=== PATIENT | male | born 1945 | race Caucasian/White ===

== ENCOUNTER 2016-08-25 11:54 | Outpatient (CLI) | payer MEDICARE ==
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
== END 2016-08-25 11:55 | disposition home or self-care (01) ==
LOC: MADCT 11:54
PROVIDERS: ATTEND Family Medicine
DX: S02.40EA Zygomatic fracture, right side, initial encounter for closed fracture (principal); M25.541 Pain in joints of right hand; M54.2 Cervicalgia; V29.40XA Motorcycle driver injured in collision with unspecified motor vehicles in traffic accident, initial encounter; Y92.9 Unspecified place or not applicable
CPT/HCPCS: 70450; 70486; 71020; 72125

== ENCOUNTER 2016-08-26 07:29 | Outpatient (CLI) | payer MEDICARE ==
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
== END 2016-08-26 07:30 | disposition home or self-care (01) ==
LOC: MADCT 07:29
PROVIDERS: ATTEND Family Medicine
DX: I61.9 Nontraumatic intracerebral hemorrhage, unspecified (principal); D32.9 Benign neoplasm of meninges, unspecified
CPT/HCPCS: 70450

== ENCOUNTER 2018-03-08 09:15 | Outpatient (CLI) | payer MEDICARE ==
[2018-03-09 08:48] LABS: Anion Gap 15 mmol/L (10-20); BUN (Urea Nitrogen) 17 mg/dL (8.4-25.7); Carbon Dioxide 25 mmol/L (23-31); Chloride 106 mmol/L (98-107); Potassium 4.7 mmol/L (3.5-5.1); Sodium 141 mmol/L (136-145)
[2018-03-09 08:49] LABS: ALT (SGPT) 24 U/L (8-55); AST (SGOT) 18 U/L (5-34); Albumin 4.4 g/dL (3.4-4.8); Alkaline Phosphatase 138 U/L (40-150); Bilirubin, Direct 0.2 mg/dL (0.1-0.3); Bilirubin, Total 0.6 mg/dL (0.2-1.2); Calc. Creatinine Clearance 0 mL/min (70-130); Calcium 9.4 mg/dL (7.8-10.44); Cholesterol 151 mg/dL (< 200 Desired); Estimated GFR-MDRD 61; Glucose 105 mg/dL (83-110); Triglycerides 213 mg/dL (Less than 150)
[2018-03-09 08:50] LABS: Cardiac Risk 4.6 (Less than 4.5); HDL Cholesterol 33 mg/dL (>60 Neg Risk); LDL Cholesterol, Calculated 75 mg/dL
== END 2018-03-08 09:16 | disposition home or self-care (01) ==
LOC: MADLAB 09:15
PROVIDERS: ATTEND Family Medicine
DX: E78.00 Pure hypercholesterolemia, unspecified (principal)
CPT/HCPCS: 36415; 80048; 80061; 80076

== ENCOUNTER 2020-12-09 11:59 | Outpatient (CLI) | payer MEDICARE | END 2020-12-09 12:00 | disposition home or self-care (01) | LOC: MADCT 11:59 | PROVIDERS: ATTEND Nurse Practitioner Family | DX: R51.9 Headache, unspecified (principal); H53.9 Unspecified visual disturbance; Z87.828 Personal history of other (healed) physical injury and trauma | CPT/HCPCS: 70450 ==

== ENCOUNTER 2021-07-01 10:45 | Outpatient (CLI) | payer MEDICARE | END 2021-07-01 10:46 | disposition home or self-care (01) | LOC: MADRAD 10:45 | PROVIDERS: ATTEND Nurse Practitioner Family | DX: J44.9 Chronic obstructive pulmonary disease, unspecified (principal); R05.9 Cough, unspecified; R06.81 Apnea, not elsewhere classified | CPT/HCPCS: 71046 ==

== ENCOUNTER 2022-10-26 11:17 | Outpatient (CLI) | payer MEDICARE | END 2022-10-26 11:18 | disposition home or self-care (01) | LOC: MADRAD 11:17 | PROVIDERS: ATTEND Internal Medicine | DX: K21.9 Gastro-esophageal reflux disease without esophagitis (principal) | CPT/HCPCS: 71046 ==

== ENCOUNTER 2024-03-14 17:49 | Emergency (ER) | payer MEDICARE ==
[2024-03-14] MEDS ORDERED: Lidocaine Viscous Sol 2% 15 ml UD Cup ONE (18:21)
[2024-03-14] MEDS ORDERED: Lidocaine-Prilocaine 2.5% Cream 5 GM TUBE ONE (18:22)
[2024-03-14 19:03] LABS: Bilirubin Negative (Negative); Blood, Urine Trace (Negative); Glucose, Urine (Dipstick) Negative (Negative); Ketone, Urine Negative (Negative); Leukocyte Negative (Negative); Nitrite Negative (Negative); Protein, Urine (Dipstick) Trace mg/dL (Neg-Trace); Urobilinogen 0.2 mg/dL (Less than 2); pH, Urine 7.5 (5.0-9.0)
[2024-03-14 19:04] LABS: Clarity Hazy (Clear)
[2024-03-14 19:09] LABS: CAUTI Indications for Culture Pelvic or flank pain; WBC/HPF 0-3 HPF (0-3)
[2024-03-14 19:10] LABS: Bacteria/HPF Rare-Few HPF (None Seen); Squamous Epithelial 0-3 HPF (0-3)
[2024-03-14 19:11] LABS: Urine Culture Reflex No No
== END 2024-03-14 19:38 | disposition home or self-care (01) ==
LOC: MADERS 17:49
DX: R33.9 Retention of urine, unspecified (principal); I25.10 Atherosclerotic heart disease of native coronary artery without angina pectoris; I25.2 Old myocardial infarction; J44.9 Chronic obstructive pulmonary disease, unspecified; K21.9 Gastro-esophageal reflux disease without esophagitis; F17.210 Nicotine dependence, cigarettes, uncomplicated; E78.00 Pure hypercholesterolemia, unspecified; D02.20 Carcinoma in situ of unspecified bronchus and lung; D01.2 Carcinoma in situ of rectum; Z79.899 Other long term (current) drug therapy
CPT/HCPCS: 51702; 81001; 99283

== ENCOUNTER 2024-03-15 20:08 | Emergency (ER) | payer MEDICARE ==
[2024-03-15 22:50] LABS: Bilirubin Negative (Negative); Blood, Urine Large (Negative); Glucose, Urine (Dipstick) Negative (Negative); Ketone, Urine Negative (Negative); Leukocyte Trace (Negative); Nitrite Negative (Negative); Protein, Urine (Dipstick) 100 mg/dL (Neg-Trace); Specific Gravity, Urine 1.025 (1.005-1.030); Urobilinogen 0.2 mg/dL (Less than 2)
[2024-03-15 22:55] LABS: Clarity Slightly Cloudy (Clear)
[2024-03-15 22:56] LABS: Bacteria/HPF Rare-Few HPF (None Seen); CAUTI Indications for Culture Acute Hematuria; RBC/HPF Greater than 50 HPF (0-3); Squamous Epithelial 0-3 HPF (0-3); Urine Culture Reflex No No
[2024-03-15] MEDS ORDERED: Lidocaine Viscous Sol 2% 15 ml UD Cup ONE (23:33)
== END 2024-03-16 00:28 | disposition home or self-care (01) ==
LOC: MADERS 20:08
DX: R33.9 Retention of urine, unspecified (principal); T83.091A Other mechanical complication of indwelling urethral catheter, initial encounter; E78.00 Pure hypercholesterolemia, unspecified; K21.9 Gastro-esophageal reflux disease without esophagitis; F17.210 Nicotine dependence, cigarettes, uncomplicated; Z79.899 Other long term (current) drug therapy
CPT/HCPCS: 51702; 81001

== ENCOUNTER 2024-10-11 12:50 | Outpatient (CLI) | payer MEDICARE | END 2024-10-11 12:51 | disposition home or self-care (01) | LOC: MADRAD 12:50 | PROVIDERS: ATTEND Family Medicine | DX: R06.02 Shortness of breath (principal); R91.8 Other nonspecific abnormal finding of lung field; J98.4 Other disorders of lung | CPT/HCPCS: 71046 ==